=== PATIENT | male | born 1940 | race Caucasian/White ===

== ENCOUNTER 2018-09-13 13:26 | Observation (INO) ==
[2018-09-13 13:56] LABS: Basophils % 0.5 % (0.0-0.8); Eosinophils # 0.1 10*3/uL (0.0-0.87); Eosinophils % 1.2 % (0.00-10.9); Hematocrit 21.5 VOL% (42.0-52.0); Hemoglobin 6.7 GM/DL (14.0-18.0); Immature Granulocytes % 0.2 %; Immature Granulocytes Absolute 0.01 #; Lymphocytes # 2.4 10*3/uL (1.4-4.0); Lymphocytes % 57.4 % (21.2-54.2); Mean Corpuscular HGB Conc 31.2 GM/DL (32-36); Mean Corpuscular Volume 102.9 FL (87-102); Mean Platelet Volume 9.6 FL (9.6-12.0); Monocytes % 6.3 % (1.7-12.7); Neutrophils % 34.4 % (38.7-73.9); Platelet Count 196 T/CUMM (130-400); Red Blood Count 2.09 MC/CUMM (3.8-5.5); Red Cell Distribution Width 17.5 % (9.3-17.3); White Blood Count 4.1 T/CUMM (4-12)
[2018-09-13 14:17] LABS: Anisocytosis 1+; Hypochromasia 1+; Lymphocytes 59 % (20-55); Segmented Neutrophils 36 % (50-85); Total Cells Counted 100
[2018-09-13 14:18] LABS: Elliptocytes Few; Platelet Estimate Adequate
[2018-09-13 14:26] LABS: Albumin 3.8 G/DL (3.4-5.0); Bilirubin,Total 0.6 MG/DL (0.2-1.0); Calcium 9.1 MG/DL (8.5-10.1); Osmolality,Calculated 276.7 MOS/KG (273-304); Total Protein 7.2 G/DL (6.4-8.3)
[2018-09-13] MEDS ORDERED: SODIUM CHLORIDE 0.9% 1,000 ML IV PRN (14:48)
[2018-09-13] MEDS ORDERED: SODIUM CHLORIDE 0.9% 500 ML IV STA (14:48)
[2018-09-13 15:19] LABS: Ferritin 376.7 ng/ml (26-388)
[2018-09-13 15:26] LABS: Folate 13.4 NG/ML (5.4-24.0)
[2018-09-13] MEDS ORDERED: MAGNESIUM SULF RIDER 2 GM in PREMIX 1 EACH IV PRN (16:10)
[2018-09-13] MEDS ORDERED: MAGNESIUM SULF RIDER 4 GM in PREMIX 1 EACH IV PRN (16:10)
[2018-09-13] MEDS ORDERED: diphenhydrAMINE CAP 25 MG CAPSULE PO PRN (16:11)
[2018-09-13] MEDS ORDERED: ACETAMINOPHEN 325 MG TABLET PO PRN (16:11)
[2018-09-13] MEDS ORDERED: POTASSIUM CHLORIDE RIDER 10 MEQ in PREMIX 1 EACH IV PRN (16:11)
[2018-09-13] MEDS: PANTOPRAZOLE 40 MG TABLET PO SCH (22:05)
[2018-09-14 06:31] LABS: Hematocrit 24.6 VOL% (42.0-52.0); Hemoglobin 7.8 GM/DL (14.0-18.0)
[2018-09-14 06:32] LABS: Eosinophils # 0.1 10*3/uL (0.0-0.87); Eosinophils % 2.4 % (0.00-10.9); Hematocrit 24.9 VOL% (42.0-52.0); Hemoglobin 7.6 GM/DL (14.0-18.0); Immature Granulocytes % 0.2 %; Immature Granulocytes Absolute 0.01 #; Lymphocytes # 2.9 10*3/uL (1.4-4.0); Lymphocytes % 68.3 % (21.2-54.2); Mean Corpuscular HGB Conc 30.5 GM/DL (32-36); Mean Corpuscular Volume 99.2 FL (87-102); Neutrophils % 22.1 % (38.7-73.9); Platelet Count 141 T/CUMM (130-400); Red Blood Count 2.51 MC/CUMM (3.8-5.5); Red Cell Distribution Width 19.4 % (9.3-17.3); White Blood Count 4.2 T/CUMM (4-12)
[2018-09-14 06:54] LABS: Lymphocytes 79 % (20-55); Segmented Neutrophils 20 % (50-85); Total Cells Counted 100
[2018-09-14 06:55] LABS: Platelet Estimate Adequate; Polychromasia Few
[2018-09-14 07:05] LABS: Albumin 3.2 G/DL (3.4-5.0); Bilirubin,Total 0.5 MG/DL (0.2-1.0); Calcium 8.8 MG/DL (8.5-10.1); Osmolality,Calculated 283.1 MOS/KG (273-304); Total Protein 6.5 G/DL (6.4-8.3)
[2018-09-14] MEDS: PANTOPRAZOLE 40 MG TABLET PO SCH (08:45)
[2018-09-14] MEDS ORDERED: hydroCHLOROthiazide 25 MG TABLET PO SCH (09:00)
[2018-09-14] MEDS ORDERED: ATENOLOL 50 MG TABLET PO SCH (09:00)
[2018-09-14] MEDS ORDERED: HEPARIN 5,000 UNIT/1 ML VIAL ONE (09:27)
[2018-09-14 11:22] VITALS: BP 146/86
== END 2018-09-14 11:53 | disposition home or self-care (01) ==
LOC: N.ED 13:26 → N.EDINP 13:26 → N.5E 14:55
PROVIDERS: ADMIT Internal Medicine; ATTEND Internal Medicine